=== PATIENT | female | born 1990 | race Caucasian/White ===

== ENCOUNTER 2018-07-24 02:47 | Emergency (ER) | payer SELFPAY ==
[~2018-07-24] VITALS: Ht 162.6 cm; Wt 63.5 kg
[2018-07-24] MEDS ORDERED: ONDANSETRON HCL/PF 4 MG/2 ML VIAL IVP ONE (03:00)
[2018-07-24] MEDS ORDERED: LORAZEPAM INJ 2 MG/ML VIAL IV ONE (03:00)
[2018-07-24] MEDS ORDERED: HYDROMORPHONE INJ 2 MG/ML DISP.SYRIN IV ONE (03:00)
--- NOTE | 2018-07-24 03:00 | NUR ---
PT BIBRA COMPLAINING OF L SHOULDER PAIN, AFTER BENDING OVER WHILE DOING LAUNDRY. PT STATES 10/10 NON-RADIATING PAIN. PT SCREAMING AND MOANING IN PAIN, UNABLE TO SIT UP OR LAY DOWN. PT LAYING FORWARD IN BED HOLDING LEFT SHOULDER. PT AAXO4. RESPIRATIONS EVEN AND UNLABORED. PT PUT ON THE MONITOR AND PENDING EVAL FROM ER .
[2018-07-24] MEDS ORDERED: ONDANSETRON HCL/PF 4 MG/2 ML VIAL ONE (03:02)
[2018-07-24] MEDS ORDERED: HYDROMORPHONE 1 MG/1 ML DISP.SYRIN ONE (03:03)
[2018-07-24] MEDS ORDERED: LORAZEPAM INJ 2 MG/ML VIAL ONE (03:04)
--- NOTE | 2018-07-24 03:21 | NUR ---
PT RESTING COMFORTABLY IN BED WHILE BEING MONITORED. FREIND AT BEDSIDE.
--- NOTE | 2018-07-24 04:00 | NUR ---
Patient being monitored and is resting comfortably in bed with eyes closed. Easily aroused.
[2018-07-24] MEDS ORDERED: IV NS 0.9% 1,000 ML BAG IV ONE (04:30)
--- NOTE | 2018-07-24 04:45 | NUR ---
Patient discharged to home in stable condition. Written and verbal after care instructions given. Patient verbalizes understanding of instruction. IV removed. Catheter intact and site benign. Pressure and 4x4 applied to site. No bleeding noted. Pt ambulatory with steady gait.
[2018-07-24 04:55] VITALS: BP 110/78
== END 2018-07-24 04:58 | disposition home or self-care (01) ==
LOC: ER 02:52
DX: M62.830 Muscle spasm of back (principal); R42 Dizziness and giddiness; Z90.89 Acquired absence of other organs; Z60.2 Problems related to living alone
CPT/HCPCS: 96361; 96374; 96375; 99283; A4606; J1170; J2060; J2405; J7030

== ENCOUNTER 2021-01-13 21:40 | Emergency (ER) | payer MEDICAID, OTHER ==
[~2021-01-13] VITALS: Ht 165.1 cm; Wt 65.8 kg
--- NOTE | 2021-01-13 21:43 | NUR ---
PT AAOX4. [id number] FROM HOME FOR ROLDAN X 3HRS. PLACED IN BED 11 ON MONITOR AND PULSE OX. NO ACUTE DISTRESS NOTED. ER MD AT BEDSIDE FOR EVAL, AWAITING ORDERS.
[2021-01-13] MEDS ORDERED: KETOROLAC TROMETHAMINE 15 MG/ML VIAL ONE (22:00)
[2021-01-13] MEDS ORDERED: diphenhydrAMINE HCL 50 MG/ML VIAL ONE (22:00)
[2021-01-13] MEDS ORDERED: PROCHLORPERAZINE EDISYLATE 10 MG/2 ML VIAL ONE (22:00)
[2021-01-13] MEDS ORDERED: KETOROLAC TROMETHAMINE INJ 30 MG/ML VIAL IV ONE (22:00)
[2021-01-13] MEDS ORDERED: PROCHLORPERAZINE EDISYLATE 10 MG/2 ML VIAL IVP ONE (22:00)
[2021-01-13] MEDS ORDERED: IV NS 0.9% 1,000 ML BAG IV ONE (22:00)
[2021-01-13] MEDS ORDERED: diphenhydrAMINE HCL 50 MG/ML VIAL IV ONE (22:00)
[2021-01-14 00:24] VITALS: BP 113/62
--- NOTE | 2021-01-14 00:24 | NUR ---
Patient discharged to home in stable condition. Written and verbal after care instructions given. Patient verbalizes understanding of instruction. Pt stated she feels better, ambulated out of ED. Picked up by boyfriend.
== END 2021-01-14 00:25 | disposition home or self-care (01) ==
LOC: ER 21:41
DX: R51.9 Headache, unspecified (principal); Z90.89 Acquired absence of other organs; Z60.2 Problems related to living alone
CPT/HCPCS: 96361; 96374; 96375; 99284; J0780; J1200; J1885; J7030